=== PATIENT | male | born 1980 | race American Indian/Alaskan Native ===

== ENCOUNTER 2016-11-14 09:12 | Emergency (ER) | payer OTHER ==
[2016-11-14 09:23] VITALS: BP 141/103
--- NOTE | 2016-11-14 10:09 | Emergency Department Report ---
ED Extremity Problem HPI - General Chief complaint: Extremity Injury, Lower Stated complaint: LT KNEE PAIN Time Seen by Provider: 11/14/16 10:01 Source: patient Mode of arrival: Ambulatory Limitations: No Limitations - History of Present Illness Initial comments: PT c/o L knee pain. PT states 1 month ago, he stepped in pallet and twisted it. PT states at first the pain was not bad, but his pain gradually worsened, now pain is a 4/10. PT states he has been wrapping his knee and taking motrin but his knee still pops and feels stuck at times. MD Complaint: joint paint Onset/Timin -: month(s) Location: left, lower extremity, knee History of Same: No Severity scale (0 -10): 4 Quality: aching Consistency: constant Improves with: nothing Worsens with: walking, palpation, other (movement ) Associated Symptoms: denies other symptoms. denies: chest pain, shortness of breath, fever - Related Data Previous Rx's Medication Instructions Recorded Last Taken Type Ibuprofen [Motrin] 600 mg PO Q8H PRN #15 tablet 11/14/16 Unknown Rx Allergies Allergy/AdvReac Type Severity Reaction Status Date / Time No Known Allergies Allergy Unverified 11/14/16 09:19 ED Review of Systems ROS: Stated complaint: LT KNEE PAIN Other details as noted in HPI Comment: All other systems reviewed and negative Constitutional: denies: chills, fever Respiratory: denies: cough, shortness of breath, SOB with exertion, SOB at rest Cardiovascular: denies: chest pain Gastrointestinal: denies: abdominal pain, nausea, vomiting Musculoskeletal: as per HPI ED Past Medical Hx - Past Medical History Previous Medical History?: No - Surgical History Past Surgical History?: No - Social History Smoking Status: Current Every Day Smoker Substance Use Type: Alcohol, Non Opiate Pain - Medications Home Medications: Home Medications Medication Instructions Recorded Confirmed Last Taken Type Ibuprofen [Motrin] 600 mg PO Q8H PRN #15 tablet 11/14/16 Unknown Rx ED Physical Exam - General Limitations: No Limitations General appearance: alert, in no apparent distress - Head Head exam: Present: atraumatic, normocephalic, normal inspection - Eye Eye exam: Present: normal appearance, EOMI. Absent: conjunctival injection - ENT ENT exam: Present: normal exam, normal external ear exam - Neck Neck exam: Present: normal inspection, full ROM - Respiratory Respiratory exam: Present: normal lung sounds bilaterally. Absent: respiratory distress, wheezes, chest wall tenderness, accessory muscle use - Cardiovascular Cardiovascular Exam: Absent: regular rate, normal rhythm, normal heart sounds - Extremities Exam Extremities exam: Present: normal inspection, full ROM, tenderness - Expanded Lower Extremity Exam Left Upper Leg exam: Present: normal inspection. Absent: tenderness Knee exam: Present: normal inspection, full ROM, tenderness (medial knee ttp ), crepidus, full knee extension. Absent: deformity, dislocation Lower Leg exam: Present: normal inspection, full ROM. Absent: tenderness Gait: Positive: observed and normal - Back Exam Back exam: Present: normal inspection, full ROM. Absent: tenderness, CVA tenderness (R), CVA tenderness (L) - Neurological Exam Neurological exam: Present: alert, oriented X3 - Psychiatric Psychiatric exam: Present: normal affect, normal mood - Skin Skin exam: Present: warm, dry, intact, normal color ED Course Vital Signs 11/14/16 09:19 Temperature 98.5 F Pulse Rate 80 Respiratory 20 Rate Blood Pressure 141/103 O2 Sat by Pulse 100 Oximetry - Reevaluation(s) Reevaluation #1: 11/14/16 10:57 PT aware of XR results. PT aware he will need to follow up with PMD for bp recheck. PT also aware that he will need to follow up with ortho. PT states wearing wrap to L knee is more painful than without. - Pulse Oximetry Interpretation Digit-Finger Initial Pulse Oximetry Readin Actions Taken: none ED Medical Decision Making - Radiology Data Radiology results: report reviewed XR knee - joint effusion - Differential Diagnosis strain, oa, fx Critical Care Time: No Critical care attestation.: If time is entered above; I have spent that time in minutes in the direct care of this critically ill patient, excluding procedure time. ED Disposition Clinical Impression: Crepitus of joint of left knee, Effusion of left knee joint Disposition: DISCHARGED TO HOME OR SELFCARE Is pt being admited?: No Does the pt Need Aspirin: No Condition: Stable Instructions: Knee Sprain (ED), Knee Effusion (ED), RICE Therapy (ED) Additional Instructions: rice follow up with PCP for bp recheck follow up with ORTHO - you may need additional imaging of your L knee Prescriptions: Ibuprofen [Motrin] 600 mg PO Q8H PRN #15 tablet PRN Reason: Pain Referrals: PRIMARY CARE, [Primary Care Provider] - 3-5 Days BLAZE MORENO MD [Staff Physician] - 3-5 Days LURDES REYES MD [Staff Physician] - 3-5 Days Forms: Work/School Release Form(ED) Time of Disposition: 10:57
--- NOTE | 2016-11-14 10:51 | XRay Report ---
LEFT KNEE, 3 views: History: Pain, injury. A moderate to large joint effusion is suspected on the lateral image. There is normal bone mineralization. No acute osseous findings or joint pathology is detected. IMPRESSION: Joint effusion. If internal derangement is suspected, MRI left knee without contrast is recommended.
== END 2016-11-14 11:05 | disposition home or self-care (01) ==
LOC: ED 09:12
DX: M23.8X2 Other internal derangements of left knee (principal); M25.462 Effusion, left knee; F17.200 Nicotine dependence, unspecified, uncomplicated

== ENCOUNTER 2017-07-26 23:21 | Emergency (ER) | payer SELFPAY ==
[2017-07-26 23:40] VITALS: BP 143/94
[2017-07-26] MEDS ORDERED: MOTRIN PO ONE (23:40)
--- NOTE | 2017-07-27 00:18 | XRay Report ---
FINAL REPORT EXAM: XR CHEST ROUTINE 2V HISTORY: cough and fever TECHNIQUE: Three views of the chest were submitted. FINDINGS: The lungs are clear. Pleural fluid is not seen. The heart size is normal. The skeletal structures are well-maintained IMPRESSION: Normal chest.
--- NOTE | 2017-07-27 04:05 | Emergency Department Report ---
Minor Respiratory - HPI Chief Complaint: Upper Respiratory Infection Stated Complaint: flu like symptoms Time Seen by Provider: 07/27/17 03:56 Duration: 2 Days Pain Location: Other (generalized body aches) Severity: moderate Minor Respiratory: Yes Rhinorrhea, Yes Able to Tolerate Fluids, Yes Cough, Yes Sick Contacts (co-workers are coming to work sick), Yes Fever, No Sore Throat, No Ear Pain, No Hemoptysis, No Chest Pain, No Shortness of Breath Other History: This is a 36 y.o. male presents with sore throat, chills, sweats , nausea and vomiting for 2 days. Patient states he woke up yesterday and could barely get out of bed. States multiple co-workers are coming in sick and think he may have caught this from them. He took theraflu once with minimal improvement. Denies chest pain, SOB, and headache. ED Review of Systems ROS: Stated complaint: flu like symptoms Other details as noted in HPI Constitutional: chills, fever, malaise. denies: diaphoresis, weakness ENT: throat pain, congestion. denies: ear pain, dental pain, hearing loss Respiratory: cough. denies: orthopnea, shortness of breath, SOB with exertion, wheezing Cardiovascular: denies: chest pain, palpitations Gastrointestinal: nausea, vomiting. denies: abdominal pain, diarrhea, constipation Musculoskeletal: myalgia (generalized body aches) Neurological: denies: headache, weakness, paresthesias ED Past Medical Hx - Past Medical History Previous Medical History?: No - Surgical History Past Surgical History?: No - Social History Smoking Status: Current Every Day Smoker Substance Use Type: Alcohol - Medications Home Medications: Home Medications Medication Instructions Recorded Confirmed Last Taken Type Ibuprofen [Motrin] 600 mg PO Q8H PRN #15 tablet 11/14/16 Unknown Rx Benzonatate 200 mg PO TID PRN #30 capsule 07/27/17 Unknown Rx Cetirizine HCl [Zyrtec] 10 mg PO DAILY #30 tablet 07/27/17 Unknown Rx Oseltamivir [Tamiflu] 75 mg PO BID 5 Days #10 cap 07/27/17 Unknown Rx Minor Respiratory Exam - Exam General: Vital signs noted. No distress. Alert and acting appropriately. HEENT: Yes Pharyngeal Erythema, Yes Moist Mucous Membranes, Yes Rhinorrhea, No Pharyngeal Exudates, No Conjuctival Injection, No Frontal Tenderness, No Maxillary Tenderness Ear: Neither TM Bulge, Neither TM Erythema, Neither EAC Pain, Neither EAC Discharge Neck: Yes Supple, No Adenopathy Lungs: Yes Good Air Exchange, Yes Cough, No Wheezes, No Ronchi, No Stridor, No Labored Respirations, No Retractions, No Use of Accessory Muscles, No Other Abnormal Lung Sounds Heart: Yes Regular, No Murmur Abdomen: Yes Normal Bowel Sounds, No Tenderness, No Peritoneal Signs Skin: No Rash, No Edema Neurologic: Alert and oriented, no deficits. Musculoskeletal: Unremarkable. ED Course Vital Signs 07/26/17 07/27/17 23:39 02:04 Temperature 100.1 F H 98.4 F Pulse Rate 114 H 98 H Respiratory 20 18 Rate Blood Pressure 143/94 [Left] O2 Sat by Pulse 98 99 Oximetry ED Medical Decision Making - Medical Decision Making This is a 36 y.o. male presents with cough, sore throat, body aches, nausea and vomiting since yesterday. Patient was examined by me. Tolerating fluids and snacks in ER. GGiven motrin 800 mg po once in ER. Heart rate and temperature trending down. CXR IMPRESSION: No radiographic evidence of acute cardiopulmonary disease. Influenza lab obtained and is negative. Physical assessment is susceptible of influenza and viral syndrome. Treated with option of using tamiflu. Discharged home with tamiflu, benzonatate, and cetrizine. F/U with PCP. Critical care attestation.: If time is entered above; I have spent that time in minutes in the direct care of this critically ill patient, excluding procedure time. ED Disposition Clinical Impression: Viral syndrome Upper respiratory infection Qualifiers: URI type: acute nasopharyngitis (common cold) Qualified Code(s): J00 - Acute nasopharyngitis [common cold] Disposition: - TO HOME OR SELFCARE Is pt being admited?: No Does the pt Need Aspirin: No Condition: Stable Instructions: Upper Respiratory Infection (ED), Cold Symptoms (ED) Additional Instructions: Increase fluid intake. Wash hands frequently. Rest. Follow up with Primary Care Provider if symptoms don't resolve in 1 week. Return to ER if fever, SOB, wheezing, and Nausea or Vomiting. Prescriptions: Benzonatate 200 mg PO TID PRN #30 capsule PRN Reason: Cough Cetirizine HCl [Zyrtec] 10 mg PO DAILY #30 tablet Oseltamivir [Tamiflu] 75 mg PO BID 5 Days #10 cap Referrals: [facility] [Outside] - 3-5 Days [facility] [Outside] - 3-5 Days [facility] [Outside] - 3-5 Days Forms: Work/School Release Form(ED) Time of Disposition: 04:10 Print Language: PORTUGUESE
== END 2017-07-27 04:24 | disposition home or self-care (01) ==
LOC: ED 23:21
DX: J00 Acute nasopharyngitis [common cold] (principal); B34.9 Viral infection, unspecified; F17.200 Nicotine dependence, unspecified, uncomplicated
CPT/HCPCS: 71046; 87400

== ENCOUNTER 2019-03-18 17:41 | Emergency (ER) | payer SELFPAY ==
[2019-03-18] MEDS ORDERED: IBUPROFEN 800 MG TAB PO ONE (18:04)
[2019-03-18 19:14] LABS: Hematocrit 44.2 % (35.5-45.6); Hemoglobin 14.8 gm/dl (11.8-15.2); Mean Corpuscular HGB Conc 34 % (32-34); Mean Corpuscular Volume 95 fl (84-94); Platelet Count 239 K/mm3 (140-440); Red Blood Count 4.64 M/mm3 (3.65-5.03); Red Cell Distribution Width 14.7 % (13.2-15.2)
[2019-03-18 19:39] LABS: Alanine Aminotransferase 26 units/L (7-56); Albumin 3.9 g/dL (3.9-5); BUN/Creatinine Ratio 6; Blood Urea Nitrogen 7 mg/dL (9-20); Calcium 8.7 mg/dL (8.4-10.2); Hemolysis Index 9
[2019-03-18] MEDS ORDERED: MORPHINE 4 MG/1 ML INJ IV ONE (21:07)
[2019-03-18] MEDS ORDERED: ONDANSETRON 4 MG/2 ML INJ IV ONE (21:07)
--- NOTE | 2019-03-18 21:12 | Emergency Department Report ---
- General Chief complaint: Skin/Abscess/Foreign Body Stated complaint: POSS SPIDER BITE Time Seen by Provider: 03/18/19 21:03 Source: patient Mode of arrival: Ambulatory Limitations: No Limitations - History of Present Illness Initial comments: Patient is 38 years old male with no significant past medical history. Patient presented to the ER complaining of left leg swelling and tenderness for the last 3 days. Patient stated that he think is the insect bite. Patient denied any fever or chills. No nausea or vomiting. MD complaint: insect bite/sting, discoloration -: days(s) (3) Tetanus Up to Date: yes Location: LLE Severity: moderate Severity scale (0 -10): 7 Consistency: constant - Related Data Previous Rx's Medication Instructions Recorded Last Taken Type Ibuprofen [Motrin] 600 mg PO Q8H PRN #15 tablet 11/14/16 Unknown Rx Benzonatate 200 mg PO TID PRN #30 capsule 07/27/17 Unknown Rx Cetirizine HCl [Zyrtec 10mg tab] 10 mg PO DAILY #30 tablet 07/27/17 Unknown Rx Oseltamivir [Tamiflu] 75 mg PO BID 5 Days #10 cap 07/27/17 Unknown Rx Allergies Allergy/AdvReac Type Severity Reaction Status Date / Time No Known Allergies Allergy Verified 07/27/17 03:59 Abscess Boil HPI - HPI Chief Complaint: Skin/Abscess/Foreign Body Stated Complaint: POSS SPIDER BITE Time Seen by Provider: 03/18/19 21:03 Home Medications: Previous Rx's Medication Instructions Recorded Last Taken Type Ibuprofen [Motrin] 600 mg PO Q8H PRN #15 tablet 11/14/16 Unknown Rx Benzonatate 200 mg PO TID PRN #30 capsule 07/27/17 Unknown Rx Cetirizine HCl [Zyrtec 10mg tab] 10 mg PO DAILY #30 tablet 07/27/17 Unknown Rx Oseltamivir [Tamiflu] 75 mg PO BID 5 Days #10 cap 07/27/17 Unknown Rx Allergies/Adverse Reactions: Allergies Allergy/AdvReac Type Severity Reaction Status Date / Time No Known Allergies Allergy Verified 07/27/17 03:59 ED Review of Systems ROS: Stated complaint: POSS SPIDER BITE Other details as noted in HPI Comment: All other systems reviewed and negative Constitutional: denies: chills, fever Cardiovascular: denies: chest pain Gastrointestinal: denies: abdominal pain, nausea Musculoskeletal: denies: back pain Skin: lesions ED Past Medical Hx - Past Medical History Previous Medical History?: No - Surgical History Past Surgical History?: No - Social History Smoking Status: Current Every Day Smoker Substance Use Type: Alcohol - Medications Home Medications: Home Medications Medication Instructions Recorded Confirmed Last Taken Type Ibuprofen [Motrin] 600 mg PO Q8H PRN #15 tablet 11/14/16 Unknown Rx Benzonatate 200 mg PO TID PRN #30 capsule 07/27/17 Unknown Rx Cetirizine HCl [Zyrtec 10mg tab] 10 mg PO DAILY #30 tablet 07/27/17 Unknown Rx Oseltamivir [Tamiflu] 75 mg PO BID 5 Days #10 cap 07/27/17 Unknown Rx ED Physical Exam - General Limitations: No Limitations General appearance: alert, in no apparent distress - Head Head exam: Present: atraumatic, normocephalic, normal inspection - Eye Eye exam: Present: normal appearance - ENT ENT exam: Present: normal exam, normal orophraynx, mucous membranes moist - Neck Neck exam: Present: normal inspection, full ROM. Absent: tenderness, meningismus, lymphadenopathy, thyromegaly - Respiratory Respiratory exam: Present: normal lung sounds bilaterally - Cardiovascular Cardiovascular Exam: Present: regular rate, normal rhythm, normal heart sounds - GI/Abdominal GI/Abdominal exam: Present: soft. Absent: distended, tenderness, guarding, rebound - Extremities Exam Extremities exam: Present: full ROM - Back Exam Back exam: Present: normal inspection. Absent: CVA tenderness (R), CVA tend erness (L) - Neurological Exam Neurological exam: Present: alert, oriented X3, CN II-XII intact, normal gait, reflexes normal - Psychiatric Psychiatric exam: Present: normal mood - Skin Skin exam: Present: warm, erythema (erythema, warmness to the left lower leg medial side consistent with cellulitis.) ED Course Vital Signs 03/18/19 17:50 Temperature 99.7 F H Pulse Rate 122 H Respiratory 16 Rate Blood Pressure 128/101 O2 Sat by Pulse 98 Oximetry ED Medical Decision Making - Lab Data Result diagrams: 03/18/19 18:51 03/18/19 18:51 - Medical Decision Making Patient is 38 years old male with no significant past medical history. Patient presented to the ER complaining of left leg swelling and tenderness for the last 3 days. Patient stated that he think is the insect bite. Patient denied any fever or chills. No nausea or vomiting. Patient left leg showed a cellulitis. Patient given clindamycin 900 mg IV in the ER. Patient given a prescription for clindamycin, Ultram and Zofran. Patient advised to follow-up with his primary care physician in the next 2-3 days and to attend to the ER if symptoms are not improved. Critical care attestation.: If time is entered above; I have spent that time in minutes in the direct care of this critically ill patient, excluding procedure time. ED Disposition Clinical Impression: Cellulitis of left leg Disposition: DC-01 TO HOME OR SELFCARE Is pt being admited?: No Condition: Stable Instructions: Cellulitis (ED) Referrals: [facility] [Provider Group] - 3-5 Days Forms: Work/School Release Form(ED)
[2019-03-18 22:02] LABS: Basophils % (Manual) 0 % (0.0-1.8); Eosinophils % (Manual) 0 % (0.0-4.3); Total Cells Counted 100
[2019-03-18 22:03] LABS: RBC Morphology Normal
[2019-03-18 23:36] VITALS: BP 132/90
== END 2019-03-18 23:37 | disposition home or self-care (01) ==
LOC: ED 17:41
DX: L03.116 Cellulitis of left lower limb (principal); F17.200 Nicotine dependence, unspecified, uncomplicated; Z79.899 Other long term (current) drug therapy
CPT/HCPCS: 36415; 80053; 85007; 85025; 96365; 96375; 99283; J2270; J2405

== ENCOUNTER 2019-03-24 16:51 | Emergency (ER) | payer SELFPAY ==
--- NOTE | 2019-03-24 18:18 | Emergency Department Report ---
Chief Complaint: Skin/Abscess/Foreign Body Stated Complaint: CELLUITIS Time Seen by Provider: 03/24/19 17:38 - HPI History of Present Illness: 38 y o male returns to Ed cc of left leg swelling and redness x 1 week, pt was evaluated about 5 days ago and prescribed clindamycin clindamycin he states he started taking the clindamycin medication on He was worried that it is getting worse He denies fever, chills, nausea, vommitting or any other symptoms. Patient states that wound is draining pus. He denies difficulty walking or any other problems. - ROS Review of Systems: As noted in HPI - Exam Vital Signs: Vital Signs 03/24/19 17:37 Temperature 98.8 F Pulse Rate 108 H Respiratory 19 Rate Blood Pressure 148/88 [Left] O2 Sat by Pulse 100 Oximetry Physical Exam: GEN: Alert and oriented 3. Extremity: Moderate swelling to the leg, cellulitis noted. Moderately draining from the lesion. Patient able to ambulate without any problems MSE screening note: Focused history and physical exam performed. Due to findings the following was ordered: ED Medical Decision Making - Medical Decision Making 38 y o male presents with cellulitis of his left leg Discussed completion of antibiotics . She is currently taking clindamycin for the past 3 days. Discussed the patient that it will take about a week for symptoms completely see. discussed the patient I'll be adding Bactrim to his prescription to take both prescriptions also completed. Discussed wound should continue to training and patient should apply heat application 3 times a day His constipation and follow-up with primary care physician in 3-5 days. Vital signs are normal patient is in no acute distress. Patient understands instructions will follow ED Disposition for MSE Clinical Impression: Cellulitis of left leg, Insect bite Disposition: - TO HOME OR SELFCARE Is pt being admited?: No Does the pt Need Aspirin: No Condition: Stable Instructions: Cellulitis (ED), Insect Bite or Sting (ED) Additional Instructions: follow up with pcp take medications as prescribed Prescriptions: Sulfamethoxazole/Trimethoprim [Bactrim DS TAB] 1 each PO BID #20 tablet Ibuprofen [Motrin] 800 mg PO Q8HR #30 tablet traMADol [Ultram 50 MG tab] 50 mg PO Q6HR PRN #8 tablet PRN Reason: Pain Referrals: PRIMARY CARE, [Primary Care Provider] - 3-5 Days [facility] [Outside] - 3-5 Days [facility] [Outside] - 3-5 Days Forms: Work/School Release Form(ED) Time of Disposition: 18:52
[2019-03-24 18:59] VITALS: BP 137/90
== END 2019-03-24 18:58 | disposition home or self-care (01) ==
LOC: ED 16:51
DX: L03.116 Cellulitis of left lower limb (principal)
CPT/HCPCS: 99282